=== PATIENT | female | born 1995 | race Caucasian/White ===

== ENCOUNTER 2023-08-30 10:06 | Outpatient (REF) | payer BC, SELFPAY ==
[2023-08-30 11:26] LABS: Free T4 Free Thyroxine* 1.17 ng/dL (0.70-1.85); Vitamin D 25 Hydroxy* 71 ng/mL (30-80)
[2023-08-31 15:21] LABS: Estradiol Premenol Female 83 pg/mL
[2023-09-01 08:19] LABS: Free T3 3.5 pg/mL (2.5-4.3)
[2023-09-01 08:41] LABS: Follicle Stimulating Hormone 6.3 IU/L
[2023-09-02 06:47] LABS: Testosterone, Low Level 312 ng/dL (9-55)
== END 2023-08-30 10:07 | disposition home or self-care (01) ==
LOC: NPINS 10:06
PROVIDERS: Visit Provider Nurse Practitioner Family
DX: R68.82 Decreased libido (principal); E34.9 Endocrine disorder, unspecified; F41.1 Generalized anxiety disorder
CPT/HCPCS: 82306; 82670; 83001; 84403; 84439; 84481

== ENCOUNTER 2024-08-21 09:37 | Outpatient (REF) | payer BC, SELFPAY ==
[2024-08-21 10:28] LABS: Basophils Absolute Auto 0.06 K/uL (0.00-0.30); Basophils Percent Auto 0.9 % (0.0-3.0); Eosinophils Absolute Auto 0.08 K/uL (0.00-0.50); Eosinophils Percent Auto 1.2 % (0.0-7.0); Hematocrit 44.3 % (33.0-51.0); Hemoglobin* 14.3 gm/dL (12.0-16.0); Immature Granulocytes Abs Auto 0.01 K/uL (0.00-0.30); Immature Granulocytes Pct Auto 0.2 %; Lymphocytes Absolute Auto 2.11 K/uL (0.90-2.90); Lymphocytes Percent Auto 31.7 % (20-44); Mean Corpuscular HGB Conc 32 gm/dL (32-36); Mean Corpuscular Hemoglobin 32 pg (26-34); Mean Corpuscular Volume 98 fL (80-100); Monocytes Percent Auto 6.3 % (0.0-11.0); Neutrophils Absolute Auto 3.97 K/uL (1.7-7.0); Neutrophils Percent Auto 59.7 % (42.0-72.0); Platelet Count* 325 K/uL (140-440); RDW Coefficient of Variation % 13.4 % (11.5-15.5); Red Blood Count 4.54 m/uL (4.00-5.20); White Blood Count* 6.65 K/uL (4.50-11.00)
[2024-08-21 10:31] LABS: Albumin* 4.9 g/dL (3.3-5.0); Chloride* 102 mmol/L (96-114); Slide Review Reflex No; Sodium* 139 mmol/L (135-149)
[2024-08-21 10:32] LABS: Potassium* 4.7 mmol/L (3.6-5.1)
[2024-08-21 10:34] LABS: Alanine Aminotransferase* 18 U/L (4-35); Alkaline Phosphatase* 52 U/L (40-150); Anion Gap 8 mEq/L (7-15); Aspartate Amino Transferase* 23 U/L (12-35); Bilirubin Total* 0.3 mg/dL (0.1-1.5); Blood Urea Nitrogen* 20 mg/dL (5-24); Carbon Dioxide* 29 mmol/L (20-32); Cholesterol* 163 mg/dL (90-199); Creatinine* 0.6 mg/dL (0.5-1.5); Estimated Glomerular Filt Rate 124 ml/min; Glucose* 83 mg/dL (60-115); Total Protein* 8.1 g/dL (6.0-8.3); Triglycerides* 169 mg/dL (40-149)
[2024-08-21 10:35] LABS: Calcium* 10.1 mg/dL (8.4-10.6); HDL Cholesterol* 50 mg/dL (>=50); LDL Cholesterol Calculated 79 mg/dL (<100)
[2024-08-21 10:51] LABS: Vitamin D 25 Hydroxy* 93 ng/mL (30-80)
[2024-08-21 10:52] LABS: Free T4 Free Thyroxine* 0.95 ng/dL (0.70-1.85)
[2024-08-22 21:14] LABS: Estradiol Premenol Female 250 pg/mL
[2024-08-23 09:44] LABS: Free T3 3.5 pg/mL (2.5-4.3)
[2024-08-23 15:48] LABS: Follicle Stimulating Hormone 5.9 IU/L
[2024-08-26 18:47] LABS: Sex Hormone Binding Globulin 102 nmol/L (25-122); Testosterone, LC-MS/MS 139 ng/dL (9-55)
[2024-08-27 23:40] LABS: Progesterone, HPLC-MS/MS <0.10 ng/mL
== END 2024-08-21 09:38 | disposition home or self-care (01) ==
LOC: NPINS 09:37
PROVIDERS: Visit Provider Nurse Practitioner Family
DX: N95.8 Other specified menopausal and perimenopausal disorders (principal)
CPT/HCPCS: 80053; 80061; 82306; 82670; 83001; 84144; 84270; 84402; 84403; 84439; 84443; 84481; 85025

== ENCOUNTER 2024-12-02 07:59 | Outpatient (CLI) | payer BC, SELFPAY ==
[2024-12-02 09:47] LABS: Free T4 Free Thyroxine* 0.99 ng/dL (0.70-1.85)
[2024-12-03 19:03] LABS: Estradiol Premenol Female 42 pg/mL
[2024-12-04 04:55] LABS: Free T3 3.1 pg/mL (2.5-4.3)
[2024-12-04 10:04] LABS: Follicle Stimulating Hormone 11.4 IU/L; Luteinizing Hormone 7.8 IU/L
[2024-12-06 08:38] LABS: Progesterone, HPLC-MS/MS 0.49 ng/mL
[2024-12-06 08:55] LABS: Sex Hormone Binding Globulin 151 nmol/L (25-122); Testosterone, LC-MS/MS 123 ng/dL (9-55)
[2024-12-10 22:37] LABS: T3 Reverse - LC-MS/MS 13.7 ng/dL (9.0-27.0); T3, Ratio (T3:RT3) 6.9 (4.2-11.0); T3, Total - LC-MS/MS 95 ng/dL (80-200)
== END 2024-12-02 08:00 | disposition home or self-care (01) ==
LOC: NPINS 08:09
PROVIDERS: Visit Provider Nurse Practitioner Family
DX: N95.8 Other specified menopausal and perimenopausal disorders (principal); Z13.29 Encounter for screening for other suspected endocrine disorder
CPT/HCPCS: 82670; 83001; 83002; 84144; 84270; 84402; 84403; 84439; 84443; 84480; 84481; 84482

== ENCOUNTER 2025-04-01 07:36 | Outpatient (CLI) | payer BC, SELFPAY ==
[2025-04-01 08:25] LABS: Hematocrit 39.9 % (33.0-51.0); Hemoglobin* 13.3 gm/dL (12.0-16.0); Mean Corpuscular HGB Conc 33 gm/dL (32-36); Mean Corpuscular Hemoglobin 32 pg (26-34); Mean Corpuscular Volume 96 fL (80-100); Platelet Count* 289 K/uL (140-440); Red Blood Count 4.17 m/uL (4.00-5.20)
[2025-04-01 08:29] LABS: Slide Review Reflex No
[2025-04-01 11:02] LABS: Albumin* 4.7 g/dL (3.3-5.0); Chloride* 104 mmol/L (96-114); Potassium* 4.4 mmol/L (3.6-5.1); Sodium* 140 mmol/L (135-149)
[2025-04-01 11:04] LABS: Anion Gap 9 mEq/L (7-15); Blood Urea Nitrogen* 22 mg/dL (5-24); Carbon Dioxide* 27 mmol/L (20-32); Cholesterol* 180 mg/dL (90-199); Creatinine* 0.6 mg/dL (0.5-1.5); Estimated Glomerular Filt Rate 123 ml/min
[2025-04-01 11:05] LABS: Alanine Aminotransferase* 15 U/L (4-35); Alkaline Phosphatase* 39 U/L (40-150); Aspartate Amino Transferase* 22 U/L (12-35); Bilirubin Total* 0.6 mg/dL (0.1-1.5); Calcium* 9.9 mg/dL (8.4-10.6); Glucose* 61 mg/dL (60-115); HDL Cholesterol* 49 mg/dL (>=50); LDL Cholesterol Calculated 110 mg/dL (<100); Total Protein* 7.9 g/dL (6.0-8.3); Triglycerides* 106 mg/dL (40-149)
[2025-04-01 11:24] LABS: Free T4 Free Thyroxine* 1.05 ng/dL (0.70-1.85)
[2025-04-02 13:18] LABS: Estradiol Premenol Female 428 pg/mL
[2025-04-03 01:09] LABS: Follicle Stimulating Hormone 4.6 IU/L
[2025-04-03 01:32] LABS: Free T3 3.3 pg/mL (2.5-4.3)
[2025-04-03 01:50] LABS: DHEAS 195 ug/dL (99-340)
[2025-04-05 05:04] LABS: Progesterone, HPLC-MS/MS 0.37 ng/mL
[2025-04-06 15:47] LABS: Sex Hormone Binding Globulin 135 nmol/L (25-122); Testosterone, Free LC-MS/MS 8.6 pg/mL (1.3-9.2); Testosterone, LC-MS/MS 137 ng/dL (9-55)
== END 2025-04-01 07:37 | disposition home or self-care (01) ==
LOC: NPINS 07:37
PROVIDERS: Visit Provider Nurse Practitioner Family
DX: N95.8 Other specified menopausal and perimenopausal disorders (principal)
CPT/HCPCS: 80053; 80061; 82627; 82670; 83001; 83002; 84144; 84270; 84402; 84403; 84439; 84443; 84481; 85027

== ENCOUNTER 2025-09-14 07:31 | Outpatient (CLI) | payer BC, SELFPAY ==
[2025-09-14 08:35] LABS: Albumin* 4.6 g/dL (3.3-5.0); Chloride* 100 mmol/L (96-114); Potassium* 4.8 mmol/L (3.6-5.1); Sodium* 137 mmol/L (135-149)
[2025-09-14 08:38] LABS: Alanine Aminotransferase* 15 U/L (4-35); Alkaline Phosphatase* 44 U/L (40-150); Anion Gap 12 mEq/L (7-15); Aspartate Amino Transferase* 22 U/L (12-35); Bilirubin Total* 0.7 mg/dL (0.1-1.5); Blood Urea Nitrogen* 19 mg/dL (5-24); Carbon Dioxide* 25 mmol/L (20-32); Creatinine* 0.6 mg/dL (0.5-1.5); Estimated Glomerular Filt Rate 123 ml/min; Total Protein* 7.7 g/dL (6.0-8.3)
[2025-09-14 08:39] LABS: Calcium* 9.3 mg/dL (8.4-10.6); Glucose* 80 mg/dL (60-115)
[2025-09-14 08:56] LABS: Free T4 Free Thyroxine* 0.85 ng/dL (0.70-1.85)
[2025-09-14 15:02] LABS: Hematocrit* 39.5 % (33.0-51.0); Hemoglobin* 13.0 gm/dL (12.0-16.0); Immature Granulocytes Abs Auto 0.00 K/uL (0.00-0.30); Immature Granulocytes Pct Auto 0.0 %; Lymphocytes Absolute Auto 1.89 K/uL (0.90-2.90); Mean Corpuscular HGB Conc 33 gm/dL (32-36); Mean Corpuscular Hemoglobin 32 pg (26-34); Mean Corpuscular Volume 97 fL (80-100); RDW Coefficient of Variation % 12.3 % (11.5-15.5); Red Blood Count* 4.09 m/uL (4.00-5.20); White Blood Count* 4.71 K/uL (4.50-11.00)
[2025-09-14 15:08] LABS: Slide Review Reflex No
[2025-09-15 19:30] LABS: Estradiol Premenol Female 128.5 pg/mL
[2025-09-15 20:45] LABS: Follicle Stimulating Hormone 11.5 IU/L; Luteinizing Hormone, Serum 14.7 IU/L
[2025-09-15 21:58] LABS: DHEAS 182 ug/dL (99-340)
[2025-09-15 22:30] LABS: Free T3 2.9 pg/mL (2.5-4.3)
[2025-09-17 15:29] LABS: Progesterone, HPLC-MS/MS 0.31 ng/mL
[2025-09-19 14:12] LABS: Testosterone, Free LC-MS/MS 2.7 pg/mL (1.3-9.2); Testosterone, LC-MS/MS 45 ng/dL (9-55)
== END 2025-09-14 07:32 | disposition home or self-care (01) ==
LOC: NPINS 07:32
PROVIDERS: Visit Provider Nurse Practitioner Family
DX: N95.9 Unspecified menopausal and perimenopausal disorder (principal)
CPT/HCPCS: 80053; 82627; 82670; 82728; 83001; 83002; 84144; 84146; 84270; 84402; 84403; 84439; 84443; 84481; 85025